=== PATIENT | male | born 2000 | race Caucasian/White ===

== ENCOUNTER 2025-03-18 10:05 | Outpatient (CLI) | payer BC | END 2025-03-18 10:06 | disposition home or self-care (01) | LOC: SCSMRI 10:05 | PROVIDERS: ATTEND Pediatrics | DX: M25.462 Effusion, left knee (principal); S83.412A Sprain of medial collateral ligament of left knee, initial encounter; S83.422A Sprain of lateral collateral ligament of left knee, initial encounter; S80.02XA Contusion of left knee, initial encounter ==